=== PATIENT | male | born 1960 | race Caucasian/White ===

== ENCOUNTER 2017-04-03 20:29 | Emergency (ER) | payer OTHER ==
[2017-04-03 20:38] VITALS: BP 132/72
[2017-04-03] MEDS ORDERED: Ibuprofen TAB* 600 MG PO ONE (21:02)
--- NOTE | 2017-04-03 21:04 | UC ---
UC General HPI - HPI Summary HPI Summary: fatique, chills bodyaches, fever, decreased appetite for the past 3 days - History of Current Complaint Chief Complaint: UCGeneralIllness Stated Complaint: CHILLS/COUGH/FEVER/SORE THROAT Time Seen by Provider: 04/03/17 20:43 Hx Obtained From: Patient Onset/Duration: Sudden Onset, Lasting Days Timing: Constant Onset Severity: Mild Current Severity: Moderate - Allergy/Home Medications Allergies/Adverse Reactions: Allergies Allergy/AdvReac Type Severity Reaction Status Date / Time No Known Allergies Allergy Verified 04/03/17 20:39 PMH/Surg Hx/FS Hx/Imm Hx Previously Healthy: Yes - Surgical History Surgical History: Yes Surgery Procedure, Year, and Place: knee surgery 2001. foot surgery 2010 - Family History Known Family History: Negative: Cardiac Disease, Hypertension - Social History Alcohol Use: Weekly Substance Use Type: None Smoking Status (MU): Heavy Every Day Tobacco Smoker Amount Used/How Often: 1/2 ppd Length of Time of Smoking/Using Tobacco: started age 19 Review of Systems Constitutional: Fever, Chills, Fatigue Skin: Negative Eyes: Negative ENT: Sore Throat, Ear Ache, Sinus Congestion Respiratory: Cough Cardiovascular: Negative Gastrointestinal: Negative Genitourinary: Negative Motor: Negative Neurovascular: Negative Musculoskeletal: Arthralgia, Myalgia Neurological: Headache Psychological: Negative Is Patient Immunocompromised?: Yes All Other Systems Reviewed And Are Negative: Yes Physical Exam Triage Information Reviewed: Yes Appearance: Well-Nourished, Ill-Appearing, Pain Distress Vital Signs: Initial Vital Signs Temp 99.2 F 04/03/17 20:35 Pulse 85 04/03/17 20:35 Resp 16 04/03/17 20:35 BP 132/72 04/03/17 20:35 Pulse Ox 95 04/03/17 20:35 Vital Signs Reviewed: Yes Eye Exam: Normal ENT: Positive: Pharyngeal erythema, Nasal drainage Dental Exam: Normal Neck exam: Normal Neck: Positive: Supple, Nontender, No Lymphadenopathy Respiratory: Positive: Chest non-tender, Normal breath sounds, No respiratory distress, No accessory muscle use, Wheezing, Inspiration Cardiovascular Exam: Normal Cardiovascular: Positive: RRR, No Murmur, Pulses Normal Abdominal Exam: Normal Abdomen Description: Positive: Nontender, No Organomegaly, Soft Bowel Sounds: Positive: Present Musculoskeletal Exam: Normal Musculoskeletal: Positive: Strength Intact, ROM Intact, No Edema Neurological Exam: Normal Neurological: Positive: Alert, Muscle Tone Normal Psychological Exam: Normal Skin Exam: Normal Course/Dx - Course Course Of Treatment: hx obtained, exam performed ,meds reviewed, rapid flu obtained, - Differential Dx - Multi-Symptom Provider Diagnoses: bronchitis. myalgia. chills. wheezing Discharge - Discharge Plan Condition: Stable Disposition: HOME Patient Education Materials: Acute Bronchitis (ED) Referrals: Susu Saldana [Primary Care Provider] - Additional Instructions: 1. take the medication as prescribed 2. follow up with any worsening symptoms
[2017-04-03] MEDS ORDERED: DOXYcycline CAP(*) 100 MG PO ONE (21:39)
[2017-04-03] MEDS ORDERED: guaiFENesin/CODIEN 100MG-10MG* 5 ML UDC PO ONE (21:40)
== END 2017-04-03 21:57 | disposition home or self-care (01) ==
LOC: UCCORT 20:29
DX: J40 Bronchitis, not specified as acute or chronic (principal); M79.1 Myalgia; R50.9 Fever, unspecified; R06.2 Wheezing; F17.210 Nicotine dependence, cigarettes, uncomplicated
CPT/HCPCS: 87502; 99203; A9270-GY; G0463

== ENCOUNTER 2018-05-12 18:33 | Emergency (ER) | payer OTHER ==
[2018-05-12 19:02] VITALS: BP 103/77
[2018-05-12] MEDS ORDERED: Amoxicillin PO (*) 500 MG CAP PO ONE (20:28)
--- NOTE | 2018-05-12 20:32 | UC ---
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 + cough. has decreased smoking down to 1-2 ciggs daily since sick. denies asthma or copd. no wheezing. no fevers or chills. + pain when bends fwd to brush teeth. -unaccompained today -no relief w/ OTC dayquil & nyquil - History of Current Complaint Chief Complaint: UCRespiratory Stated Complaint: SINUSES/BILAT EARS Time Seen by Provider: 05/12/18 20:11 Pain Intensity: 0 - Allergies/Home Medications Allergies/Adverse Reactions: Allergies Allergy/AdvReac Type Severity Reaction Status Date / Time No Known Allergies Allergy Verified 05/12/18 18:51 Home Medications: Home Medications Cholecalciferol TAB* [Vitamin D TAB*] 1,000 unit PO DAILY 05/12/18 [History Confirmed 05/12/18] Dextromethorphn/Acetaminoph/Cp [Vicks Nyquil Cold & Flu Liquid] 1 liq PO QPM PRN 05/12/18 [History Confirmed 05/12/18] I D Lifevitamin Supplements 1 dose PO BID 05/12/18 [History Confirmed 05/12/18] Phenylephrine/Dm/Acetaminop/GG [Vicks Dayquil Severe Cold-Flu] 1 liq PO Q12H PRN 05/12/18 [History Confirmed 05/12/18] Tadalafil [Cialis] 5 mg PO SEE INSTRUCTIONS PRN 05/12/18 [History Confirmed ] PMH/Surg Hx/FS Hx/Imm Hx Previously Healthy: Yes - Surgical History Surgical History: Yes Surgery Procedure, Year, and Place: knee surgery 2001. foot surgery 2010 - Family History Known Family History: Negative: Cardiac Disease, Hypertension - Social History Alcohol Use: Weekly Alcohol Amount: 3-4 Substance Use Type: None Smoking Status (MU): Light Every Day Tobacco Smoker Amount Used/How Often: 1/2 ppd Length of Time of Smoking/Using Tobacco: started age 19 Review of Systems Constitutional: Fatigue Skin: Negative Eyes: Negative ENT: Nasal Discharge, Sinus Congestion, Sinus Pain/Tenderness Respiratory: Cough Cardiovascular: Negative Gastrointestinal: Negative Genitourinary: Negative Motor: Negative Neurovascular: Negative Musculoskeletal: Negative Neurological: Negative Psychological: Negative Is Patient Immunocompromised?: No All Other Systems Reviewed And Are Negative: Yes Physical Exam Triage Information Reviewed: Yes Appearance: Well-Appearing, No Pain Distress, Well-Nourished - upset about wait time. Vital Signs: Initial Vital Signs Temp 98.2 F 05/12/18 18:57 Pulse 84 05/12/18 18:57 Resp 18 05/12/18 18:57 BP 103/77 05/12/18 18:57 Pulse Ox 98 05/12/18 18:57 Eye Exam: Normal ENT: Positive: Pharyngeal erythema - + PND< no exudate, TMs normal, Sinus tenderness, Uvula midline Neck exam: Normal Neck: Positive: Supple, Nontender, No Lymphadenopathy Respiratory Exam: Normal Respiratory: Positive: Lungs clear, Normal breath sounds, No respiratory distress, No accessory muscle use. Negative: Crackles, Rhonchi, Stridor, Wheezing Cardiovascular Exam: Normal Cardiovascular: Positive: RRR Abdomen Description: Positive: Nontender, Soft Musculoskeletal Exam: Normal Neurological Exam: Normal Psychological Exam: Normal Skin Exam: Normal UC Diagnostic Evaluation - Laboratory O2 Sat by Pulse Oximetry: 98 Respiratory Course/Dx - Differential Dx/Diagnosis Differential Diagnosis/HQI/PQRI: Bronchitis, Sinusitis Provider Diagnoses: sinusitis Discharge - Sign-Out/Discharge Documenting (check all that apply): Patient Departure All imaging exams completed and their final reports reviewed: No Studies - Discharge Plan Condition: Stable Disposition: HOME Prescriptions: Amoxicillin PO (*) [Amoxicillin 875 MG (*)] 875 mg PO BID 10 Days #19 tab Patient Education Materials: Sinusitis (ED) Referrals: Susu Saldana [Primary Care Provider] - 5 Days Additional Instructions: -continue taking your probiotics daily while on antibiotics -using a netti pot daily followed by steroid nasal spray daily while you have symptoms would be helpful. You can discuss possibility of allergies with your PCP as well. - Billing Disposition and Condition Condition: STABLE Disposition: Home
== END 2018-05-12 20:42 | disposition home or self-care (01) ==
LOC: UCCORT 18:33
DX: J32.9 Chronic sinusitis, unspecified (principal); F17.210 Nicotine dependence, cigarettes, uncomplicated
CPT/HCPCS: 99212; A9270-GY; G0463